=== PATIENT | male | born 1990 | race Caucasian/White ===

== ENCOUNTER 2017-05-23 20:29 | Inpatient (IN) | payer OTHER ==
[2017-05-23 20:48] VITALS: BMI 28.8
--- NOTE | 2017-05-23 21:02 | HP ---
CIWA Score - CIWA Score Nausea/Vomitin Muscle Tremors: 4-Moderate,w/Arms Extend Anxiety: 4-Mod. Anxious/Guarded Agitation: 3 Paroxysmal Sweats: 1-Minimal Palms Moist Orientation: 0-Oriented Tacttile Disturbances: 0-None Auditory Disturbances: 0-None Visual Disturbances: 0-None Headache: 0-None Present CIWA-Ar Total Score: 14 Admission ROS BHS - HPI Chief Complaint: withdrawal sx Allergies/Adverse Reactions: Allergies Allergy/AdvReac Type Severity Reaction Status Date / Time No Known Allergies Allergy Verified 05/23/17 21:03 History of Present Illness: 26 years old male with long history of alcohol dependence, denies medical issue denies mental illness is admitted to detox Exam Limitations: No Limitations - Ebola screening Have you traveled outside of the country in the last 21 days: No Have you had contact with anyone from an Ebola affected area: No Have you been sick,other than usual withdrawal symptoms: No Do you have a fever: No - Review of Systems Constitutional: Weight Stable EENT: reports: No Symptoms Reported Respiratory: reports: No Symptoms reported Cardiac: reports: No Symptoms Reported GI: reports: Nausea, Poor Fluid Intake, Abdominal cramping : reports: No Symptoms Reported Musculoskeletal: reports: No Symptoms Reported Integumentary: reports: No Symptoms Reported Neuro: reports: Tremors Endocrine: reports: No Symptoms Reported Hematology: reports: No Symptoms Reported Psychiatric: reports: Judgement Intact, Mood/Affect Appropiate, Orientated x3 Other Systems: Reviewed and Negative Patient History - Patient Medical History Hx Anemia: No Hx Asthma: No Hx Chronic Obstructive Pulmonary Disease (COPD): No Hx Cancer: No Hx Cardiac Disorders: No Hx Congestive Heart Failure: No Hx Hypertension: No Hx Hypercholesterolemia: No Hx Pacemaker: No HX Cerebrovascular Accident: No Hx Seizures: No Hx Dementia: No Hx Diabetes: No Hx Gastrointestinal Disorders: No Hx Liver Disease: No Hx Genitourinary Disorders: No Hx Sexually Transmitted Disorders: No Hx Renal Disease (ESRD): No Hx Thyroid Disease: No Hx Human Immunodeficiency Virus (HIV): No Hx Hepatitis C: No Hx Depression: No Hx Suicide Attempt: No Hx Bipolar Disorder: No Hx Schizophrenia: No - Patient Surgical History Past Surgical History: No - PPD History Previous Implant?: Yes Documented Results: Negative w/o proof Implanted On Prior [facility] Admission?: No PPD to be Administered?: Yes - Smoking Cessation Smoking history: Never smoked Have you smoked in the past 12 months: No Hx Chewing Tobacco Use: No Initiated information on smoking cessation: No - Substance & Tx. History Hx Alcohol Use: Yes Hx Substance Use: No Substance Use Type: Alcohol Hx Substance Use Treatment: No - Substances Abused Alcohol Route: Oral Frequency: 3-6 times per week Amount used: [id number] beer Age of first use: 7 Date of Last Use: 05/23/17 Family Disease History - Family Disease History Family Disease History: Diabetes: Mother, Heart Disease: Sister Admission Physical Exam [facility] - Vital Signs Vital Signs: Vital Signs - 24 hr 05/23/17 20:45 Temperature 97.2 F L Pulse Rate 95 H Respiratory 18 Rate Blood Pressure 133/93 - Physical General Appearance: Yes: Nourished, Appropriately Dressed, Mild Distress, Alcohol on Breath, Tremorous, Irritable, Sweating, Anxious HEENTM: Yes: Hearing grossly Normal, Normal ENT Inspection, Normocephalic, Normal Voice Respiratory: Yes: Chest Non-Tender, Lungs Clear, Normal Breath Sounds, No Respiratory Distress, No Accessory Muscle Use Neck: Yes: Supple, Trachea in good position Breast: Yes: Breasts Symetrical Cardiology: Yes: Regular Rhythm, S1, S2, Tachycardia Abdominal: Yes: Normal Bowel Sounds, Non Tender, Soft Genitourinary: Yes: Within Normal Limits Back: Yes: Normal Inspection Musculoskeletal: Yes: full range of Motion, Gait Steady Extremities: Yes: Normal Inspection, Normal Range of Motion, Non-Tender, Tremors Neurological: Yes: Fully Oriented, Alert, Motor Strength 5/5, Normal Mood/Affect , Normal Response Integumentary: Yes: Warm Lymphatic: Yes: Within Normal Limits - Diagnostic (1) Alcohol dependence with uncomplicated withdrawal Current Visit: Yes Status: Acute Cleared for Admission [facility] - Detox or Rehab [facility] Level of Care: Medically Managed Detox Regimen/Protocol: Librium [facility] Breath Alcohol Content Breath Alcohol Content: 0.033 Urine Drug Screen - Results Drug Screen Negative: Yes
[2017-05-23] MEDS ORDERED: MAGNESIUM HYDROX 2400MG/30ML ORAL SUSPENSION 30 ML CUP PO PRN (21:25)
[2017-05-23] MEDS ORDERED: MAGNESIUM CITRATE 300 ML BOTTLE PO PRN (21:25)
[2017-05-23] MEDS ORDERED: MAG HYDROX/AL HYDROX/SIMETH 30 ML UNIT-DOSE CUP PO PRN (21:25)
[2017-05-23] MEDS ORDERED: IBUPROFEN 400 MG TABLET (FP) PO PRN (21:25)
[2017-05-23] MEDS ORDERED: ACETAMINOPHEN 325 MG TABLET (FP) PO PRN (21:25)
[2017-05-23] MEDS ORDERED: LOPERAMIDE HCL 2 MG CAPSULE PO PRN (21:25)
[2017-05-23] MEDS ORDERED: guaiFENesin/D-METHORPHAN HB 10 ML UNIT-DOSE CUPS PO PRN (21:25)
[2017-05-23] MEDS ORDERED: MENTHOL/PHENOL 1 EACH UD MM PRN (21:25)
[2017-05-23] MEDS ORDERED: diphenhydrAMINE HCL 50 MG CAPSULE PO PRN (21:25)
[2017-05-23] MEDS ORDERED: chlordiazePOXIDE HCL 25 MG CAPSULE PO PRN (21:25)
[2017-05-23] MEDS ORDERED: P-EPHED 60MG/TRIPROLIDI 2.5MG TABLET PO PRN (21:25)
[2017-05-23] MEDS: chlordiazePOXIDE HCL 25 MG CAPSULE PO SCH (23:40)
[2017-05-23] MEDS: THIAMINE HCL 100 MG TABLET (FP) PO SCH (23:45)
[2017-05-24 01:07] LABS: URINE APPEARANCE CLEAR; URINE BILIRUBIN NEGATIVE (NEGATIVE); URINE BLOOD NEGATIVE (NEGATIVE); URINE COLOR STRAW; URINE GLUCOSE (UA) NEGATIVE (NEGATIVE); URINE KETONE NEGATIVE (NEGATIVE); URINE NITRITE NEGATIVE (NEGATIVE); URINE PROTEIN NEGATIVE (NEGATIVE); URINE UROBILINOGEN NEGATIVE mg/dL (0.2-1.0)
[2017-05-24] MEDS: chlordiazePOXIDE HCL 25 MG CAPSULE PO SCH ×4 (06:20→22:44)
--- NOTE | 2017-05-24 09:36 | PN ---
S CIWA - CIWA Score Nausea/Vomitin Muscle Tremors: 3 Anxiety: 3 Agitation: 3 Paroxysmal Sweats: 1-Minimal Palms Moist Orientation: 0-Oriented Tacttile Disturbances: 1-Very Mild Itch/Numbness Auditory Disturbances: 1-Very Mild Visual Disturbances: 0-None Headache: 2-Mild CIWA-Ar Total Score: 17 BHS Progress Note (SOAP) Subjective: alert,irritable,anxious,interrupted sleep,tremor,interrupted sleep Objective: 05/24/17 09:33 Vital Signs Temperature 97 F L 05/24/17 06:31 Pulse Rate 77 05/24/17 06:31 Respiratory Rate 18 05/24/17 06:31 Blood Pressure 122/77 05/24/17 06:31 O2 Sat by Pulse Oximetry (%) ekg sinus tachycardia 103/min no chest pain,no sob,no dizziness Laboratory Last Values Urine Color Straw 05/23/17 23:41 Urine Appearance Clear 05/23/17 23:41 Urine pH 6.0 (5.0-8.0) 05/23/17 23:41 Ur Specific [place] 1.005 (1.001-1.035) 05/23/17 23:41 Urine Protein Negative (NEGATIVE) 05/23/17 23:41 Urine Glucose (UA) Negative (NEGATIVE) 05/23/17 23:41 Urine Ketones Negative (NEGATIVE) 05/23/17 23:41 Urine Blood Negative (NEGATIVE) 05/23/17 23:41 Urine Nitrite Negative (NEGATIVE) 05/23/17 23:41 Urine Bilirubin Negative (NEGATIVE) 05/23/17 23:41 Urine Urobilinogen Negative mg/dL (0.2-1.0) 05/23/17 23:41 lab pending Assessment: 05/24/17 09:35 withdrawal symptom Plan: continue detox
[2017-05-24 10:04] LABS: MCH 29.3 pg (25.7-33.7); MCHC 33.5 g/dl (32.0-35.9); MEAN CELL VOLUME 87.3 fl (80-96); MEAN PLT VOLUME 8.5 fl (7.5-11.1); PLATELET COUNT 226 K/MM3 (134-434); RDW 13.6 % (11.9-15.9); WHITE BLOOD COUNT 5.8 K/mm3 (4.0-10.0)
[2017-05-24] MEDS: PRENATAL VITAMINS W/ FOLIC ACID TABLET (FP) PO SCH (10:04)
[2017-05-24 10:24] LABS: ALBUMIN 3.6 g/dl (3.4-5.0); ALK PHOS 92 U/L (45-117); ANION GAP 7 (8-16); BILIRUBIN,TOTAL 0.6 mg/dL (0.2-1.0); CALCIUM 8.9 mg/dL (8.5-10.1); CO2 27 mmol/L (21-32); CREATININE 1.1 mg/dL (0.7-1.3); GLUCOSE,RANDOM 93 mg/dL (74-106); SGOT/AST 32 U/L (15-37); SGPT/ALT 40 U/L (12-78); TOT PROT 7.1 g/dl (6.4-8.2)
[2017-05-24 11:27] LABS: URINE LEUK ESTERASE Negative (NEGATIVE)
[2017-05-24] MEDS ORDERED: FLU VACCINE QUAD 60 MCG/0.5 ML (MDV 17-18) IM ONE (12:00)
--- NOTE | 2017-05-24 17:09 | EKG ---
Test Reason : Blood Pressure : / mmHG Vent. Rate : 103 BPM Atrial Rate : 103 BPM P-R Int : 132 ms QRS Dur : 088 ms QT Int : 296 ms P-R-T Axes : 066 044 018 degrees QTc Int : 387 ms SINUS TACHYCARDIA OTHERWISE NORMAL ECG NO PREVIOUS ECGS AVAILABLE Confirmed by VANNESA ARNETT MD ([id number]) on 05/24/2017 5:08:50 PM Referred By: Kendrick Gallo Confirmed By:VANNESA ARNETT MD
[2017-05-24] MEDS ORDERED: HYDROCORTISONE 1% TOPICAL CREAM 30 GM TUBE TP ONE (19:46)
[2017-05-24] MEDS: THIAMINE HCL 100 MG TABLET (FP) PO SCH (22:44)
[2017-05-25] MEDS: chlordiazePOXIDE HCL 25 MG CAPSULE PO SCH ×3 (05:48→18:05)
[2017-05-25] MEDS: PRENATAL VITAMINS W/ FOLIC ACID TABLET (FP) PO SCH (10:08)
--- NOTE | 2017-05-25 11:06 | PN ---
S CIWA - CIWA Score Nausea/Vomitin Muscle Tremors: 3 Anxiety: 2 Agitation: 2 Paroxysmal Sweats: 1-Minimal Palms Moist Orientation: 0-Oriented Tacttile Disturbances: 1-Very Mild Itch/Numbness Auditory Disturbances: 1-Very Mild Visual Disturbances: 0-None Headache: 2-Mild CIWA-Ar Total Score: 15 BHS Progress Note (SOAP) Subjective: ALERT,IRRITABLE,ANXIOUS,INTERRUPTED SLEEP,TREMOR Objective: 05/25/17 11:05 Vital Signs Temperature 96 F L 05/25/17 09:30 Pulse Rate 91 H 05/25/17 09:30 Respiratory Rate 18 05/25/17 09:30 Blood Pressure 100/65 05/25/17 09:30 O2 Sat by Pulse Oximetry (%) Laboratory Last Values WBC 5.8 K/mm3 (4.0-10.0) 05/24/17 07:00 RBC 4.90 M/mm3 (4.00-5.60) 05/24/17 07:00 Hgb 14.3 GM/dL (11.7-16.9) 05/24/17 07:00 Hct 42.8 % (35.4-49) 05/24/17 07:00 MCV 87.3 fl (80-96) 05/24/17 07:00 MCH 29.3 pg (25.7-33.7) 05/24/17 07:00 MCHC 33.5 g/dl (32.0-35.9) 05/24/17 07:00 RDW 13.6 % (11.9-15.9) 05/24/17 07:00 Plt Count 226 K/MM3 (134-434) 05/24/17 07:00 MPV 8.5 fl (7.5-11.1) 05/24/17 07:00 Sodium 137 mmol/L (136-145) 05/24/17 07:00 Potassium 4.0 mmol/L (3.5-5.1) 05/24/17 07:00 Chloride 103 mmol/L (98-107) 05/24/17 07:00 Carbon Dioxide 27 mmol/L (21-32) 05/24/17 07:00 Anion Gap 7 (8-16) L 05/24/17 07:00 BUN 17 mg/dL (7-18) 05/24/17 07:00 Creatinine 1.1 mg/dL (0.7-1.3) 05/24/17 07:00 Creat Clearance w eGFR > 60 (>60) 05/24/17 07:00 Random Glucose 93 mg/dL (74-106) 05/24/17 07:00 Calcium 8.9 mg/dL (8.5-10.1) 05/24/17 07:00 Total Bilirubin 0.6 mg/dL (0.2-1.0) 05/24/17 07:00 AST 32 U/L (15-37) 05/24/17 07:00 ALT 40 U/L (12-78) 05/24/17 07:00 Alkaline Phosphatase 92 U/L (45-117) 05/24/17 07:00 Total Protein 7.1 g/dl (6.4-8.2) 05/24/17 07:00 Albumin 3.6 g/dl (3.4-5.0) 05/24/17 07:00 Urine Color Straw 05/23/17 23:41 Urine Appearance Clear 05/23/17 23:41 Urine pH 6.0 (5.0-8.0) 05/23/17 23:41 Ur Specific [place] 1.005 (1.001-1.035) 05/23/17 23:41 Urine Protein Negative (NEGATIVE) 05/23/17 23:41 Urine Glucose (UA) Negative (NEGATIVE) 05/23/17 23:41 Urine Ketones Negative (NEGATIVE) 05/23/17 23:41 Urine Blood Negative (NEGATIVE) 05/23/17 23:41 Urine Nitrite Negative (NEGATIVE) 05/23/17 23:41 Urine Bilirubin Negative (NEGATIVE) 05/23/17 23:41 Urine Urobilinogen Negative mg/dL (0.2-1.0) 05/23/17 23:41 Ur Leukocyte Esterase Negative (NEGATIVE) 05/23/17 23:41 RPR Titer Nonreactive (NONREACTIVE) 05/24/17 07:00 Assessment: 05/25/17 11:06 WITHDRAWAL SYMPTOM Plan: CONTINUE DETOX
[2017-05-25] MEDS: chlordiazePOXIDE 5 MG CAPSULE PO SCH (22:35)
[2017-05-25] MEDS: THIAMINE HCL 100 MG TABLET (FP) PO SCH (22:35)
[2017-05-26] MEDS: chlordiazePOXIDE 5 MG CAPSULE PO SCH ×3 (05:57→17:28)
[2017-05-26] MEDS: PRENATAL VITAMINS W/ FOLIC ACID TABLET (FP) PO SCH (10:07)
--- NOTE | 2017-05-26 15:55 | PN ---
BHS Progress Note (SOAP) Subjective: Sweating,interrupted sleep,restless Objective: 05/26/17 15:54 Vital Signs - 8 hr 05/26/17 05/26/17 10:13 14:54 Temperature 97.0 F L 98.3 F Pulse Rate 94 H 109 H Respiratory 18 18 Rate Blood Pressure 126/71 129/71 Laboratory Tests 05/23/17 05/24/17 05/24/17 23:41 07:00 07:00 WBC 5.8 RBC 4.90 Hgb 14.3 Hct 42.8 MCV 87.3 MCH 29.3 MCHC 33.5 RDW 13.6 Plt Count 226 MPV 8.5 Sodium 137 Potassium 4.0 Chloride 103 Carbon Dioxide 27 Anion Gap 7 L BUN 17 Creatinine 1.1 Creat Clearance w eGFR > 60 Random Glucose 93 Calcium 8.9 Total Bilirubin 0.6 AST 32 ALT 40 Alkaline Phosphatase 92 Total Protein 7.1 Albumin 3.6 Urine Color Straw Urine Appearance Clear Urine pH 6.0 Ur Specific [place] 1.005 Urine Protein Negative Urine Glucose (UA) Negative Urine Ketones Negative Urine Blood Negative Urine Nitrite Negative Urine Bilirubin Negative Urine Urobilinogen Negative Ur Leukocyte Esterase Negative RPR Titer 05/24/17 07:00 WBC RBC Hgb Hct MCV MCH MCHC RDW Plt Count MPV Sodium Potassium Chloride Carbon Dioxide Anion Gap BUN Creatinine Creat Clearance w eGFR Random Glucose Calcium Total Bilirubin AST ALT Alkaline Phosphatase Total Protein Albumin Urine Color Urine Appearance Urine pH Ur Specific [place] Urine Protein Urine Glucose (UA) Urine Ketones Urine Blood Urine Nitrite Urine Bilirubin Urine Urobilinogen Ur Leukocyte Esterase RPR Titer Nonreactive labs noted Assessment: 05/26/17 15:54 Withdrawal sx. Plan: Continue detox
[2017-05-26] MEDS: THIAMINE HCL 100 MG TABLET (FP) PO SCH (22:00)
[2017-05-26] MEDS: chlordiazePOXIDE HCL 10 MG CAPSULE PO SCH (22:01)
[2017-05-27] MEDS: chlordiazePOXIDE HCL 10 MG CAPSULE PO SCH (05:56)
[2017-05-27 06:22] VITALS: BP 131/72; PULSE 75; TEMP 97.5
--- NOTE | 2017-05-27 10:14 | DS ---
[facility] Detox Discharge Summary Admission Date: 05/23/17 Discharge Date: 05/27/17 - History Present History: Alcohol Dependence Pertinent Past History: Denies - Physical Exam Results Vital Signs: Vital Signs Temperature 97.5 F L 05/27/17 06:00 Pulse Rate 75 05/27/17 06:00 Respiratory Rate 18 05/27/17 06:00 Blood Pressure 131/72 05/27/17 06:00 O2 Sat by Pulse Oximetry (%) Pertinent Admission Physical Exam Findings: Withdrawal sx. Laboratory Last Values WBC 5.8 K/mm3 (4.0-10.0) 05/24/17 07:00 RBC 4.90 M/mm3 (4.00-5.60) 05/24/17 07:00 Hgb 14.3 GM/dL (11.7-16.9) 05/24/17 07:00 Hct 42.8 % (35.4-49) 05/24/17 07:00 MCV 87.3 fl (80-96) 05/24/17 07:00 MCH 29.3 pg (25.7-33.7) 05/24/17 07:00 MCHC 33.5 g/dl (32.0-35.9) 05/24/17 07:00 RDW 13.6 % (11.9-15.9) 05/24/17 07:00 Plt Count 226 K/MM3 (134-434) 05/24/17 07:00 MPV 8.5 fl (7.5-11.1) 05/24/17 07:00 Sodium 137 mmol/L (136-145) 05/24/17 07:00 Potassium 4.0 mmol/L (3.5-5.1) 05/24/17 07:00 Chloride 103 mmol/L (98-107) 05/24/17 07:00 Carbon Dioxide 27 mmol/L (21-32) 05/24/17 07:00 Anion Gap 7 (8-16) L 05/24/17 07:00 BUN 17 mg/dL (7-18) 05/24/17 07:00 Creatinine 1.1 mg/dL (0.7-1.3) 05/24/17 07:00 Creat Clearance w eGFR > 60 (>60) 05/24/17 07:00 Random Glucose 93 mg/dL (74-106) 05/24/17 07:00 Calcium 8.9 mg/dL (8.5-10.1) 05/24/17 07:00 Total Bilirubin 0.6 mg/dL (0.2-1.0) 05/24/17 07:00 AST 32 U/L (15-37) 05/24/17 07:00 ALT 40 U/L (12-78) 05/24/17 07:00 Alkaline Phosphatase 92 U/L (45-117) 05/24/17 07:00 Total Protein 7.1 g/dl (6.4-8.2) 05/24/17 07:00 Albumin 3.6 g/dl (3.4-5.0) 05/24/17 07:00 Urine Color Straw 05/23/17 23:41 Urine Appearance Clear 05/23/17 23:41 Urine pH 6.0 (5.0-8.0) 05/23/17 23:41 Ur Specific [place] 1.005 (1.001-1.035) 05/23/17 23:41 Urine Protein Negative (NEGATIVE) 05/23/17 23:41 Urine Glucose (UA) Negative (NEGATIVE) 05/23/17 23:41 Urine Ketones Negative (NEGATIVE) 05/23/17 23:41 Urine Blood Negative (NEGATIVE) 05/23/17 23:41 Urine Nitrite Negative (NEGATIVE) 05/23/17 23:41 Urine Bilirubin Negative (NEGATIVE) 05/23/17 23:41 Urine Urobilinogen Negative mg/dL (0.2-1.0) 05/23/17 23:41 Ur Leukocyte Esterase Negative (NEGATIVE) 05/23/17 23:41 RPR Titer Nonreactive (NONREACTIVE) 05/24/17 07:00 labs noted - Treatment Hospital Course: Detox Protocol Followed, Detoxed Safely, Responded well, Discharged Condition Good, Rehab Referral Accepted Patient has Accepted a Rehab Referral to: [facility] - Medication Discharge Medications: Ambulatory Orders NK [No Known Home Medication] 05/23/17 - Diagnosis (1) Alcohol dependence with uncomplicated withdrawal Current Visit: Yes Status: Acute - AMA Did Patient Leave Against Medical Advice: No
== END 2017-05-27 08:45 | disposition home or self-care (01) | DRG 775 ==
LOC: YASAS 20:29 → Y6N 22:23
PROVIDERS: ADMIT Internal Medicine; ATTEND Internal Medicine
PROC: HZ2ZZZZ Detoxification Services for Substance Abuse Treatment (ICD-10-PCS; principal; 2017-05-23)
DX: F10.230 Alcohol dependence with withdrawal, uncomplicated (principal); R00.0 Tachycardia, unspecified
CPT/HCPCS: 36415; 80053; 81003; 85027; 86593; 90688; 93005; 93010; G0008